=== PATIENT | female | born 1995 | race Caucasian/White ===

== ENCOUNTER 2018-11-23 12:18 | Emergency (ER) | payer SELFPAY ==
[~2018-11-23] VITALS: Wt 81.1 kg
[2018-11-23] MEDS ORDERED: morphine 4 MG/ML VIAL IV STA (14:05)
[2018-11-23] MEDS ORDERED: ONDANSETRON 4 MG INJ IV STA (14:05)
[2018-11-23] MEDS ORDERED: SOD CHLORIDE 0.9% 1,000 ML IV STA (14:05)
[2018-11-23] MEDS ORDERED: IOHEXOL 300MG/ML 150 ML BTL ONE (14:53)
[2018-11-23] MEDS ORDERED: SOD CHLORIDE 0.9% 100 ML ONE (14:53)
--- NOTE | 2018-11-23 15:42 | ERD ---
ER Documentation Chief Complaint Chief Complaint vomiting x3d; 'little bit' blood. epigastric pain. hx cholecyst, salmonella HPI 23-year-old female presents with complaint of vomiting for the past 3 days. States that the vomit is been light green in color. In addition she is states he has had epigastric pain as well. States that the pain is intermittent worse with palpation. Denies any fevers, dysuria, hematuria, constipation, flank pain. ROS All systems reviewed and are negative except as per history of present illness. Medications Home Meds Active Scripts Hydrocodone/Acetaminophen ([place] 5-325 Tablet) 1 Each Tablet, 1 TAB PO Q6H PRN for PAIN, #10 TAB Prov:SHERICE GABRIEL 11/23/18 Cephalexin* (Keflex*) 500 Mg Capsule, 500 MG PO BID for UTI for 14 Days, CAP Prov:ROSIEGASPERKASHIFSHERICE 11/23/18 Allergies Allergies: Coded Allergies: No Known Allergy (Unverified , 11/23/18) PMhx/Soc History of Surgery: Yes (LAP LEX) FmHx Family History: No diabetes, No coronary disease, No other Physical Exam Vitals Vital Signs Date Temp Pulse Resp B/P (MAP) Pulse Ox O2 O2 Flow FiO2 Time Delivery Rate 11/23/18 98.7 86 16 110/62 98 Room Air 16:48 (78) 11/23/18 98.7 110 16 138/72 100 12:28 (94) Physical Exam Const: No acute distress Head: Atraumatic Eyes: Normal Conjunctiva ENT: Normal External Ears, Nose and Mouth. Neck: Full range of motion. No meningismus. Resp: Clear to auscultation bilaterally Cardio: Regular rate and rhythm, no murmurs Abd: Tenderness to palpation in the left lower quadrant with guarding. Skin: No petechiae or rashes Back: No midline or flank tenderness Ext: No cyanosis, or edema Neur: Awake and alert Psych: Normal Mood and Affect Result Diagram: 11/23/18 1419 11/23/18 1419 Results 24 hrs Laboratory Tests Test 11/23/18 14:19 11/23/18 14:21 White Blood Count 15.0 10^3/ul Red Blood Count 5.37 10^6/ul Hemoglobin 15.1 g/dl Hematocrit 45.4 % Mean Corpuscular Volume 84.5 fl Mean Corpuscular Hemoglobin 28.1 pg Mean Corpuscular Hemoglobin Concent 33.3 g/dl Red Cell Distribution Width 12.8 % Platelet Count 404 10^3/UL Mean Platelet Volume 10.1 fl Immature Granulocytes % 0.500 % Neutrophils % 70.1 % Lymphocytes % 21.4 % Monocytes % 5.7 % Eosinophils % 1.8 % Basophils % 0.5 % Nucleated Red Blood Cells % 0.0 /100WBC Immature Granulocytes # 0.080 10^3/ul Neutrophils # 10.5 10^3/ul Lymphocytes # 3.2 10^3/ul Monocytes # 0.9 10^3/ul Eosinophils # 0.3 10^3/ul Basophils # 0.1 10^3/ul Nucleated Red Blood Cells # 0.0 10^3/ul Urine Color YELLOW Urine Clarity SLIGHTLY CLOUDY Urine pH 5.0 Urine Specific [place] 1.021 Urine Ketones NEGATIVE mg/dL Urine Nitrite NEGATIVE mg/dL Urine Bilirubin NEGATIVE mg/dL Urine Urobilinogen NEGATIVE mg/dL Urine Leukocyte Esterase TRACE Yenny/ul Urine Microscopic RBC 2 /HPF Urine Microscopic WBC 3 /HPF Urine Squamous Epithelial Cells FEW /HPF Urine Bacteria FEW /HPF Urine Mucus FEW /HPF Urine Hemoglobin 1+ mg/dL Urine Glucose NEGATIVE mg/dL Urine Total Protein NEGATIVE mg/dl Sodium Level 143 mmol/L Potassium Level 4.0 mmol/L Chloride Level 106 mmol/L Carbon Dioxide Level 25 mmol/L Anion Gap 12 Blood Urea Nitrogen 8 mg/dl Creatinine 0.51 mg/dl Est Glomerular Filtrat Rate mL/min > 60 mL/min Glucose Level 91 mg/dl Calcium Level 9.9 mg/dl Total Bilirubin 0.4 mg/dl Direct Bilirubin 0.00 mg/dl Indirect Bilirubin 0.4 mg/dl Aspartate Amino Transf (AST/SGOT) 35 IU/L Alanine Aminotransferase (ALT/SGPT) 55 IU/L Alkaline Phosphatase 142 IU/L Total Protein 8.9 g/dl Albumin 4.7 g/dl Globulin 4.20 g/dl Albumin/Globulin Ratio 1.11 Lipase 50 U/L POC Beta HCG, Qualitative NEGATIVE Current Medications Medications Dose Sig/Grace Start Time Status Last (Trade) Ordered Route PRN Stop Time Admin Dose Reason Admin Sodium 1,000 ml @ Q1H STAT 11/23/18 DC 11/23/18 Chloride 1,000 mls/hr IV 14:05 11/23/18 14:20 15:04 Morphine 4 mg ONCE STAT 11/23/18 DC 11/23/18 Sulfate IV 14:05 11/23/18 14:21 (morphine) 14:08 Ondansetron 4 mg ONCE STAT 11/23/18 DC 11/23/18 HCl (Zofran IV 14:05 11/23/18 14:21 Inj) 14:08 IV Flush 10 ml STK-MED 11/23/18 DC (NS 10 ml) ONCE .ROUTE 14:53 11/23/18 14:54 Sodium 100 ml @ ud STK-MED 11/23/18 DC Chloride ONCE .ROUTE 14:53 11/23/18 14:54 Iohexol 150 ml STK-MED 11/23/18 DC (Omnipaque ONCE .ROUTE 14:53 11/23/18 300mg/ ml) 14:54 Ceftriaxone 1 gm ONCE ONCE 11/23/18 DC Sodium IM 16:00 11/23/18 (Rocephin) 16:03 Lidocaine 5 ml ONCE ONCE 11/23/18 DC (Xylocaine INJ 16:00 11/23/18 1% (Mpf)) 16:01 Ceftriaxone 1 gm ONCE ONCE 11/23/18 DC Sodium IVPB 16:30 11/23/18 (Rocephin) 16:30 Ceftriaxone 50 ml @ ONCE ONCE 11/23/18 DC 11/23/18 Sodium 100 mls/hr IVPB 16:30 11/23/18 16:16 16:59 Procedures/MDM DIAGNOSTIC IMAGING REPORT Patient: SILVERIO CHATMAN : 1995 Age: 23 Sex: F MR #: [id number] DOS: 11/23/18 1405 Ordering MD: SHERICE GABRIEL [facility] Room/Bed: PROCEDURE: US Pelvis CLINICAL INDICATION: Pelvic pain. TECHNIQUE: Sonographic evaluation of the pelvis was performed utilizing both transabdominal and transvaginal technique. Curved array transabdominal transducer technique as well as a high frequency endovaginal probe was utilized. Images were reviewed on the high-resolution PACS workstation. COMPARISON: No prior studies are available for comparison. FINDINGS: The uterus is normal in size, echogenicity, and morphology measuring 5.5 x 2.9 x 4.1 cm in dimension. The endometrium is thin and homogeneous measuring 5.7 mm in diameter. The normal trilaminar stripe of the endometrium is preserved. The right ovary measures 3.5 x 2.2 x 2.4 cm in dimension. The left ovary measures 3.0 x 2.4 x 2.4 cm in dimension. The ovaries are symmetric in size, echogenicity, and morphology. Normal Doppler flow is demonstrated to both ovaries. There are no adnexal masses. There is no significant free fluid in the pelvis. IMPRESSION: Unremarkable ultrasound of the pelvis. RPTAT: HH .Betzy Avila MD, MD Date Time Electronically viewed and signed by .Betzy Avila MD, on 11/23/2018 15:32 .G/ CC: SHERICE GABRIEL [id number] DIAGNOSTIC IMAGING REPORT Patient: SILVERIO CHATMAN : 1995 Age: 23 Sex: F MR #: [id number] DOS: 11/23/18 1405 Ordering MD: SHERICE GABRIEL [facility] Room/Bed: PROCEDURE: CT Abdomen and Pelvis with contrast. CLINICAL INDICATION: Abdominal pain. TECHNIQUE: CT scan of the abdomen and pelvis with contrast was performed utilizing axial tomographic images from the domes the diaphragm to the symphysis pubis. The patient was scanned post uncomplicated intravenous administration of 100 cc of Omnipaque-300. Coronal and sagittal reformatted images were obtained from the axial source images. Images were reviewed on a high-resolution PACS workstation. The total exam CTDI equals 11.97 mGy and the total exam DLP equals 665.89 mGy-cm. One or more of the following dose reduction techniques were used: Automated exposure control, adjustment of the mA and / or kV according to patient size, or use of iterative reconstruction technique. DICOM images are available. COMPARISON: None. FINDINGS: The lung bases are clear . The liver is normal in size and contour. No focal intrahepatic masses are identified. There is no intra or extrahepatic biliary dilatation. The gallbladder is surgically absent. The spleen, pancreas, and adrenal glands are unremarkable. The kidneys are symmetric in size and demonstrate normal enhancement. No hydronephrosis or hydroureter is seen. No renal parenchymal mass is identified. The urinary bladder is unremarkable. The bowel demonstrates normal course and caliber. There is no evidence of bowel obstruction. No bowel wall thickening is identified. The appendix is normal in appearance. The uterus and adnexa are unremarkable. No intraperitoneal free fluid, free air or abscess identified. No retroperitoneal, mesenteric, or inguinal adenopathy is identified. The abdominal aorta and major branching vessels are normal in caliber. The osseous structures are unremarkable. No significant subcutaneous soft tissue abnormality is identified. IMPRESSION: 1. No acute intra-abdominal abnormality identified. 2. Status post cholecystectomy. RPTAT: HH .Betzy Avila MD, MD Date Time Electronically viewed and signed by .Betzy Avila MD, on 11/23/2018 15:30 .G/ CC: SHERICE GABRIEL [id number] MDM: Decision was made to order CT with contrast based on patient's complaint of vomiting bile as well as abdominal pain. Results are within normal limits. Pelvic US were also WNL. Patient most likely suffering from gastritis. Low suspicion for cholelithiasis cholecystitis, appendicitis, intra-abdominal abscess, esophageal rupture, or any other emergent condition. Patient discharged with strict ER precautions. Patient advised to follow up with PMD. All questions answered at discharge. Departure Diagnosis: Primary Impression: Gastritis Gastritis type: unspecified gastritis Chronicity: acute Gastritis bleeding: presence of bleeding unspecified Qualified Codes: K29.00 - Acute gastritis without bleeding Additional Impressions: Vomiting Vomiting type: unspecified Vomiting Intractability: non-intractable Nausea presence: unspecified Qualified Codes: R11.10 - Vomiting, unspecified Dysuria Condition: Stable SHERICE GABRIEL November 23, 2018 15:42
[2018-11-23] MEDS ORDERED: HYDR-4011 PO (15:52)
[2018-11-23] MEDS ORDERED: CEPH-443 PO (15:52)
[2018-11-23] MEDS ORDERED: CEFTRIAXONE 1 GM INJ IM ONE (16:00)
[2018-11-23] MEDS ORDERED: LIDOCAINE 1% (MPF) 5 ML VIAL INJ ONE (16:00)
[2018-11-23] MEDS ORDERED: CEFTRIAXONE 1 GM INJ IVPB ONE (16:30)
[2018-11-23] MEDS ORDERED: CEFTRIAXONE 1 GM/50 ML (PMX) 50 ML IVPB ONE (16:30)
[2018-11-23 16:48] VITALS: BP 110/62; PULSE 86; RESP 16
== END 2018-11-23 16:49 | disposition home or self-care (01) ==
LOC: FTE 12:18
DX: K29.00 Acute gastritis without bleeding (principal); R30.0 Dysuria; R10.2 Pelvic and perineal pain
CPT/HCPCS: 36415; 74177; 76830; 76856; 80053; 81001; 81025; 83690; 85025; 87086; 96361; 96365; 96375; 99285; J0696; J2270; J2405; J7030; Q9967